=== PATIENT | female | born 1965 | race Caucasian/White ===

== ENCOUNTER 2019-04-03 10:36 | Emergency (ER) | payer OTHER ==
[2019-04-03] MEDS ORDERED: ASPIRIN 81 MG TABLET, CHEWABLE PO ONE (11:32)
--- NOTE | 2019-04-03 11:32 | ER Document Report ---
ED Medical Screen (RME) - General Chief Complaint: Chest Pain Stated Complaint: CHEST PAIN Time Seen by Provider: 04/03/19 11:30 Mode of Arrival: Ambulatory Information source: Patient Notes: 53-year-old female presented to ED for complaint of chest pain she was seen at her primary care doctor with abnormal EKG. She states she was seen in June for chest pain and they did a heart cath which was negative. He states that at that time she had chest pain also. Today she got chest pain with numbness going down her left arm. 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 Patient is alert oriented respirations regular and unlabored speaking in full sentences walks with a even steady gait at this time. I have greeted and performed a rapid initial assessment of this patient. A comprehensive ED assessment and evaluation of the patient, analysis of test results and completion of medical decision making process will be conducted by an additional ED providers. Dictation of this chart was performed using voice recognition software; therefore, there may be some unintended grammatical errors. - Related Data Allergies/Adverse Reactions: haloperidol [From Haldol] Allergy (Verified 04/03/19 10:38) Physical Exam - Vital signs Vitals: Temp Pulse BP Pulse Ox 98.5 F 83 155/109 H 100 04/03/19 10:48 04/03/19 10:48 04/03/19 10:48 04/03/19 10:48 Course - Vital Signs Vital signs: Temp Pulse Resp BP Pulse Ox 98.5 F 83 155/109 H 100 04/03/19 10:48 04/03/19 10:48 04/03/19 10:48 04/03/19 10:48
[2019-04-03 12:23] LABS: ABSOLUTE LYMPHOCYTES (AUTO) 1.5 10^3/uL (0.5-4.7); ABSOLUTE MONOCYTES (AUTO) 0.2 10^3/uL (0.1-1.4); BASOPHILS % (AUTO) 1.1 % (0-2); EOSINOPHILS % (AUTO) 0.4 % (0-6); HEMATOCRIT 36.6 % (36.0-47.0); HEMOGLOBIN 12.4 g/dL (12.0-15.5); LYMPHOCYTES % (AUTO) 40.5 % (13-45); MEAN CORPUSCULAR HEMOGLOBIN 33.8 pg (27.0-33.4); MEAN CORPUSCULAR HGB CONC 33.8 g/dL (32.0-36.0); MEAN CORPUSCULAR VOLUME 100 fl (80-97); MONOCYTES % (AUTO) 5.6 % (3-13); PLATELET COUNT 227 10^3/uL (150-450); RED BLOOD COUNT 3.66 10^6/uL (3.72-5.28); SEGMENTED NEUTROPHILS % (AUTO) 52.4 % (42-78); TOTAL CELLS COUNTED % (AUTO) 100 %; WHITE BLOOD COUNT 3.8 10^3/uL (4.0-10.5)
[2019-04-03 12:24] LABS: APPEARANCE,URINE CLEAR; BILIRUBIN,URINE NEGATIVE (NEGATIVE); COLOR,URINE YELLOW; GLUCOSE, URINE NEGATIVE (NEGATIVE); KETONES,URINE NEGATIVE (NEGATIVE); LEUKOCYTE ESTERASE,URINE NEGATIVE (NEGATIVE); NITRITE,URINE NEGATIVE (NEGATIVE); PROTEIN,URINE NEGATIVE (NEGATIVE); URINE SPECIFIC GRAVITY 1.014; UROBILINOGEN,URINE NEGATIVE mg/dL (<2.0)
--- NOTE | 2019-04-03 12:29 | RADIOLOGY REPORT (SQ) ---
EXAM DESCRIPTION: CHEST 2 VIEWS COMPLETED DATE/TIME: 04/03/2019 12:08 pm REASON FOR STUDY: upper abdominal /lower chest pain COMPARISON: None. EXAM PARAMETERS: NUMBER OF VIEWS: two views TECHNIQUE: Digital Frontal and Lateral radiographic views of the chest acquired. RADIATION DOSE: NA LIMITATIONS: none FINDINGS: LUNGS AND PLEURA: No opacities, masses or pneumothorax. No pleural effusion. MEDIASTINUM AND HILAR STRUCTURES: No masses or contour abnormalities. HEART AND VASCULAR STRUCTURES: Heart normal size. No evidence for failure. BONES: No acute findings. HARDWARE: None in the chest. OTHER: No other significant finding. IMPRESSION: NO ACUTE RADIOGRAPHIC FINDING IN THE CHEST. TECHNICAL DOCUMENTATION: JOB ID: [id number] [employer]- All Rights Reserved Reading location - IP/workstation name: [email or web address]
[2019-04-03 12:39] LABS: ALANINE AMINOTRANSFERASE 73 U/L (9-52); ALBUMIN 3.2 g/dL (3.5-5.0); ALKALINE PHOSPHATASE 112 U/L (38-126); ANION GAP 7 (5-19); ASPARTATE AMINO TRANSFERASE 58 U/L (14-36); BILIRUBIN,DIRECT 0.6 mg/dL (0.0-0.4); BILIRUBIN,TOTAL 0.7 mg/dL (0.2-1.3); BLOOD UREA NITROGEN 12 mg/dL (7-20); CALCIUM 8.8 mg/dL (8.4-10.2); CARBON DIOXIDE 25 mmol/L (22-30); CHLORIDE 104 mmol/L (98-107); GLUCOSE 84 mg/dL (75-110); LIPASE 180.9 U/L (23-300); POTASSIUM 4.7 mmol/L (3.6-5.0); SODIUM 135.6 mmol/L (137-145); TOTAL PROTEIN 5.9 g/dL (6.3-8.2)
--- NOTE | 2019-04-03 13:04 | EKG REPORT ---
SEVERITY:- ABNORMAL ECG - SINUS RHYTHM LOW VOLTAGE IN FRONTAL LEADS CONSIDER OLD ANTEROSEPTAL PA. : Confirmed by: Jamie Rodriguez MD 03-Apr-2019 13:03:23
[2019-04-03 13:08] LABS: TROPONIN I < 0.012 ng/mL
--- NOTE | 2019-04-03 15:14 | ER Document Report ---
ED General - General Chief Complaint: Chest Pain Stated Complaint: CHEST PAIN Time Seen by Provider: 04/03/19 11:30 Primary Care Provider: GAYLE BILLINGS MD [ACTIVE STAFF] - Follow up in 3-5 days (CARDIOLOGY ) Mode of Arrival: Ambulatory Notes: Patient is a 53-year-old female that presents to the emergency department for chief complaint of chest pain. The patient reports that the pain started a few weeks ago. The currently rate the pain as 1 out of 10, and described as aching in the chest. They have had associated shortness of breath at times, no diaphoresis, nausea or vomiting, does admit to having some belching, and the pain is in her epigastric region for the most part. Their risk factors for heart disease include hypertension and smoking history. Patient has history of gastric bypass several years ago, has been having more belching recently in the past few months. She states she is also recently moved here and has been off of her Thorazine, and amlodipine for about 2 months now. She went to a new primary care today, and because of what she was telling them they advised her to come to the emergency department to be evaluated. She denies her own prior history of coronary disease, is not sure if she had a stress test anytime recently. Past Medical History: Hypertension, bipolar disorder Past Surgical History: Gastric bypass, Social History: Admits to smoking cigarettes, denies alcohol or drug use. Family History: Reviewed and noncontributory for presenting illness Allergies: Reviewed, see documented allergy list. REVIEW OF SYSTEMS: Other than noted above, the 12 point review of systems was reviewed with the patient and were negative, all pertinent findings are included in the HPI. PHYSICAL EXAMINATION: Vital signs reviewed, nursing noted reviewed. GENERAL: Well-appearing, well-nourished and in no acute distress. HEAD: Atraumatic, normocephalic. EYES: Eyes appear normal, extraocular movements intact, sclera anicteric, conjun ctiva are normal. ENT: nares patent, oropharynx clear without exudates. Moist mucous membranes. NECK: Normal range of motion, supple without lymphadenopathy LUNGS: Breath sounds clear to auscultation bilaterally and equal. No wheezes rales or rhonchi. HEART: Regular rate and rhythm without murmurs ABDOMEN: Soft, nontender, normoactive bowel sounds. No rebound, guarding, or rigidity. No masses appreciated. EXTREMITIES: Nontender, good range of motion, no pitting or edema. NEUROLOGICAL: No focal neurological deficits. Moves all extremities spontaneously Motor and sensory grossly intact on exam. PSYCH: Normal mood, normal affect. SKIN: Warm, Dry, normal turgor, no rashes or lesions noted on exposed skin - Related Data Allergies/Adverse Reactions: haloperidol [From Haldol] Allergy (Verified 04/03/19 10:38) Past Medical History - General Information source: Patient - Social History Smoking Status: Current Every Day Smoker Frequency of alcohol use: None Drug Abuse: None Family History: Reviewed & Not Pertinent Patient has suicidal ideation: No Patient has homicidal ideation: No - Past Medical History Cardiac Medical History: Reports: Hx Hypertension Renal/ Medical History: Denies: Hx Peritoneal Dialysis Past Surgical History: Reports: Hx Abdominal Surgery - hernia repair, Hx Bowel Surgery - bowel resection, gastric bypass, Hx Cardiac Catheterization - in 2018, Hx Section, Hx Cholecystectomy, Hx Orthopedic Surgery - right ankle, Hx Tonsillectomy Physical Exam - Vital signs Vitals: Temp Pulse BP Pulse Ox 98.5 F 83 155/109 H 100 04/03/19 10:48 04/03/19 10:48 04/03/19 10:48 04/03/19 10:48 Course - Re-evaluation Re-evalutation: Presentation of chest pain in an otherwise well appearing patient. Low clinical suspicion for ACS given clinical history, exam, EKG without ST elevations or depressions, and negative initial troponin. HEART score less than or equal to 3. PE also seems unlikely given clinical history, absence of tachycardia or dyspnea. Patient is PERC criteria negative. CXR without evidence of pneumothorax or pneumonia. No widened mediastinum. Aortic dissection also seems unlikely given history, symmetric pulses, CXR, and vitals. HEART Score: History 1 ECG 0 Age 1 Risk Factors 1 Troponin 0 Total: 3 Chest pain in a patient without evidence of cardiac or other serious etiology on workup today. I discussed with patient that, based on their age, risk factors and emergency department testing today, the likelihood that their symptoms are related to a heart attack is very low (estimated risk of heart attack or over the next 30 days of less than 1%). The patient demonstrates decision making capacity and has verbalized an understanding of these risks to me. Based on this, the patient has chosen to follow-up as an outpatient. Usual chest pain return precautions reviewed. The patient states understanding and agreement with this plan. Patient to negative troponins today, acute ACS in this presentation is highly unlikely, I do recommend that the patient get a stress test with a lamp replacer and she is given referral, also recommended she start taking omeprazole 40 mg daily, as her symptoms seem consistent with a GI related cause, however she was encouraged if her symptoms worsen in any way, to return to the emergency department sooner if she cannot see a lamp replacer. Patient was refilled on her Thorazine, which she states she has been out of, as well as her amlodipine, for 2 weeks until she can see her primary care physician again. - Vital Signs Vital signs: Temp Pulse Resp BP Pulse Ox 98.5 F 83 15 154/102 H 100 04/03/19 10:48 04/03/19 10:48 04/03/19 15:01 04/03/19 15:00 04/03/19 15:01 - Laboratory Result Diagrams: 04/03/19 11:35 04/03/19 11:35 Laboratory results interpreted by me: 04/03/19 04/03/19 11:35 11:35 WBC 3.8 L RBC 3.66 L MCV 100 H MCH 33.8 H Sodium 135.6 L Direct Bilirubin 0.6 H AST 58 H ALT 73 H Total Protein 5.9 L Albumin 3.2 L - EKG Interpretation by Me Additional EKG results interpreted by me: EKG demonstrates sinus rhythm with a ventricular rate of 80 bpm, normal axis, normal intervals, no ST elevation, compared to prior EKG from the patient's outpatient testing today, without any significant change. Discharge - Discharge Clinical Impression: Chest pain Qualifiers: Chest pain type: unspecified Qualified Code(s): R07.9 - Chest pain, unspecified Condition: Stable Disposition: HOME, SELF-CARE Instructions: Chest Pain of Unclear Cause ([facility]) Additional Instructions: Please follow-up with the lamp replacer, call for an appointment to set up a possible stress test, and abdomen on a cardiology evaluation. I recommend taking omeprazole, the prescription dosing has been prescribed for you, advise taking this daily, to see if it does improve your symptoms. If you have worsening symptoms, things are not improving over the next few weeks, and you cannot get into see the lamp replacer, please return to the emergency department sooner. Prescriptions: Amlodipine Besylate [Norvasc 5 mg Tablet] 5 mg PO DAILY #15 tablet Chlorpromazine HCl [Thorazine 25 Mg Tablet] 25 mg PO TID #45 tablet Omeprazole 40 mg PO DAILY #30 capsule.dr Referrals: GAYLE BILLINGS MD [ACTIVE STAFF] - Follow up in 3-5 days (CARDIOLOGY )
[2019-04-03 17:16] VITALS: BP 169/99
== END 2019-04-03 17:16 | disposition home or self-care (01) ==
LOC: ER 10:36
DX: R07.9 Chest pain, unspecified (principal); R14.2 Eructation; R06.02 Shortness of breath; R10.13 Epigastric pain; F31.9 Bipolar disorder, unspecified; T43.3X6A Underdosing of phenothiazine antipsychotics and neuroleptics, initial encounter; I10 Essential (primary) hypertension; T46.1X6A Underdosing of calcium-channel blockers, initial encounter; Z91.128 Patient's intentional underdosing of medication regimen for other reason; Z91.14 Patient's other noncompliance with medication regimen; F17.210 Nicotine dependence, cigarettes, uncomplicated; Z88.8 Allergy status to other drugs, medicaments and biological substances; Z98.84 Bariatric surgery status
CPT/HCPCS: 36415; 71046; 80053; 81001; 82553; 83690; 84484; 85025; 93005; 93010; 99284